=== PATIENT | male | born 1940 | race Caucasian/White ===

== ENCOUNTER 2023-02-09 09:12 | Inpatient (IN) | payer OTHER, MEDICAID ==
[~2023-02-09] VITALS: Ht 152.4 cm; Wt 65.8 kg
--- NOTE | 2023-02-09 09:13 | NUR ---
[facility] TO ER BED 3
[2023-02-09 09:20] VITALS: BP 157/82
[2023-02-09] MEDS ORDERED: NACL 0.9% 500 ML IV SCH (09:30)
[2023-02-09 09:57] LABS: BASOPHILS % (AUTO) 0.2 % (0.0-2.0); HEMATOCRIT 23.3 % (36-52); HEMOGLOBIN 7.5 g/dL (12.0-18.0); LYMPHOCYTES # (AUTO) 0.4 K/uL (2.0-11.5); LYMPHOCYTES % (AUTO) 2.8 % (20.5-51.1); MEAN CORPUSCULAR HEMOGLOBIN 28 pg (27-31); MEAN CORPUSCULAR HGB CONC 32 g/dL (33-37); MEAN CORPUSCULAR VOLUME 87.4 fL (80-94); MONOCYTES # (AUTO) 0.6 K/uL (0.8-1.0); MONOCYTES % (AUTO) 4.1 % (1.7-9.3); NEUTROPHILS # (AUTO) 13.9 K/uL (1.8-7.7); NEUTROPHILS % (AUTO) 92.9 % (42.2-75.2); PLATELET COUNT (AUTO) 178 K/uL (140-450); RED BLOOD CELL COUNT(AUTO) 2.67 MIL/uL (4.20-6.10)
[2023-02-09 10:20] LABS: ALBUMIN 2.6 g/dL (3.4-5.0); ANION GAP 16.3 (8-16); ASPARTATE AMINOTRANSFERASE 17 U/L (15-37); CARBON DIOXIDE 20.8 mmol/L (21-32); CHLORIDE 107 mmol/L (98-107); CREATININE 2.6 mg/dL (0.6-1.3); GLUCOSE 152 mg/dL (74-106); POTASSIUM 4.1 mmol/L (3.5-5.1); SODIUM SERUM 140 mmol/L (136-145); TOTAL BILIRUBIN 0.6 mg/dL (0.0-1.0)
[2023-02-09 10:25] LABS: UREA NITROGEN, BLOOD 89 mg/dL (7-18)
[2023-02-09 10:28] LABS: PROTHROMBIN TIME 11.7 secs (10.8-13.4)
[2023-02-09] MEDS ORDERED: PIPERACILLIN/TAZOBACTAM 2.25 GM in DEXTROSE 5% 50 ML IV ONE (11:00)
[2023-02-09] MEDS ORDERED: PIPERACILLIN/TAZOBACTAM 3.375 GM in DEXTROSE 5% 50 ML IV ONE (11:00)
[2023-02-09] MEDS ORDERED: NACL 0.9% 1,000 ML IV ONE (11:00)
[2023-02-09] MEDS ORDERED: PIPERACILLIN/TAZOBACTAM 2.25 GM VIAL IV ONE (11:16)
[2023-02-09] MEDS ORDERED: ESCI20TA PO (11:35)
[2023-02-09] MEDS ORDERED: AMLO5TAB PO (11:35)
[2023-02-09] MEDS ORDERED: TACR1CAP17 PO (11:35)
[2023-02-09] MEDS ORDERED: [UNRECOGNIZED DRUG - CODE] PO (11:35)
[2023-02-09] MEDS ORDERED: CLON0.1T16 PO (11:35)
[2023-02-09] MEDS ORDERED: FLONAS NS (11:35)
[2023-02-09] MEDS ORDERED: LISI2.5T12 PO (11:35)
[2023-02-09] MEDS ORDERED: ASPI-1749 PO (11:35)
[2023-02-09] MEDS ORDERED: TRA200 PO (11:35)
[2023-02-09] MEDS ORDERED: HYDR-1098 PO (11:35)
[2023-02-09] MEDS ORDERED: PRED5TAB8 PO (11:35)
[2023-02-09] MEDS ORDERED: FURO-572 PO (11:35)
[2023-02-09] MEDS ORDERED: CALC-1018 PO (11:35)
[2023-02-09] MEDS ORDERED: POLY10DR5 OP (11:35)
[2023-02-09] MEDS ORDERED: TAMS0.4C97 PO (11:35)
[2023-02-09 12:15] LABS: BILIRUBIN,URINE 1+ (NEGATIVE); BLOOD, URINE 3+ (NEGATIVE); LEUKOCYTE ESTERASE ,URINE 3+ (NEGATIVE); NITRITE, URINE POSITIVE (NEGATIVE); PH,URINE 6.5 (5.0-9.0); UGLUCOSE NEGATIVE (NEGATIVE)
[2023-02-09] MEDS ORDERED: FUROSEMIDE 100 MG/10 ML VIAL IV ONE (12:25)
[2023-02-09] MEDS ORDERED: AZITHROMYCIN 250 MG TAB PO ONE (12:25)
[2023-02-09 12:42] LABS: APPEARANCE,URINE CLOUDY (CLEAR); COLOR,URINE BLOODY (YELLOW); RBC,URINE >100 /HPF (0-5)
[2023-02-09 12:43] LABS: BARBITURATE, URINE NEGATIVE ng/ml (NEG <=200); BENZODIAZEPINE, URINE NEGATIVE ng/mL (NEG <=200); CANNABINOID, URINE NEGATIVE ng/mL (NEG <=50); COCAINE, URINE NEGATIVE ng/mL (NEG <=300); OPIATE, URINE NEGATIVE ng/mL (NEG <=2000); PHENCYCLIDINE SCREEN,URINE NEGATIVE ng/mL (NEG <=25)
[2023-02-09] MEDS ORDERED: cefTRIAXone 1,000 MG VIAL ONE (12:46)
[2023-02-09] MEDS ORDERED: HEPARIN PER PHARMACY MC PRN ×2 (13:10→13:15)
[2023-02-09] MEDS ORDERED: hePARIN / DEXT 5% PREMIX 250 ML IV SCH (13:10)
[2023-02-09] MEDS ORDERED: ALBUTEROL SULFATE/IPRATROPIU 3 ML SOL IH ONE ×2 (14:03→14:05)
[2023-02-09 14:08] LABS: PROTHROMBIN TIME 11.9 secs (10.8-13.4)
[2023-02-09] MEDS ORDERED: ACETAMINOPHEN 325 MG TAB PO ONE (14:10)
[2023-02-09] MEDS: hePARIN / DEXT 5% PREMIX 250 ML IV SCH ×2 (16:12→20:02)
--- NOTE | 2023-02-09 16:30 | NUR ---
admitted the patinet from emergency room jack Larson in rm 125A aox2 with admitting diagnosis of urinary tract infection. on heparin drip initial dose 7mls/hr in 250 ml will continue to monitor
[2023-02-09] MEDS ORDERED: FLUTICASONE NASAL 50 MCG/ACTUATION 16 GM BTL NS PRN ×2 (16:50→17:05)
[2023-02-09] MEDS ORDERED: LABETALOL 200 MG TAB PO SCH (17:00)
[2023-02-09] MEDS ORDERED: POTASSIUM CHLORIDE 10 MEQ TABER PO PRN (17:00)
[2023-02-09] MEDS ORDERED: ACETAMINOPHEN 325 MG TAB PO PRN (17:00)
[2023-02-09] MEDS ORDERED: hydrALAZINE 25 MG TAB PO SCH (17:00)
[2023-02-09] MEDS ORDERED: MAG SULF 2000 MG/WATER PREMIX 50 ML IV PRN (17:00)
--- NOTE | 2023-02-09 17:08 | NUR ---
Patient will be admitted to care of DR. GALEAS. Admited to TELE. Will go to room 125 B. Belongings list completed. Report to MICHAEL GIANG.
[2023-02-09 18:34] LABS: PROTHROMBIN TIME 13.2 secs (10.8-13.4)
[2023-02-09 18:49] LABS: CHOL/HDL RATIO 2.4 (1-4.5); FREE T4 (FREE THYROXINE) 0.93 ng/dL (0.76-1.46); MAGNESIUM 1.9 mg/dL (1.8-2.4); PHOSPHORUS 2.9 mg/dL (2.5-4.9); THYROID STIMULATING HORMONE 1.37 uIU/mL (0.34-3.74)
--- NOTE | 2023-02-09 19:07 | NUR ---
will endorse to lieutenant shift supervisor rn for continuity of care
--- NOTE | 2023-02-09 19:15 | NUR ---
RECEIVED PT IN BED ASLEEP. NO S/SX OF PAIN NOR DISCOMFORT. NO ACUTE RESPIRATORY DISTRESS NOTED. SKIN WARM AND TO TOUCH. SAFETY PRECAUTIONS IN PLACE, CALL LIGHT IN REACH.
[2023-02-09 20:00] VITALS: BP 194/74
[2023-02-09] MEDS ORDERED: TRIMETHOPRIM OP SCH (20:00)
[2023-02-09] MEDS ORDERED: POLYMYXIN B SULF OP SCH (20:00)
[2023-02-09] MEDS: DOCUSATE SODIUM 100 MG GELCAP PO SCH (20:21)
[2023-02-09] MEDS: ESCITALOPRAM 20 MG TAB PO SCH (20:23)
[2023-02-09] MEDS: TACROLIMUS 1 MG CAP PO SCH (20:24)
--- NOTE | 2023-02-09 20:24 | NUR ---
DUE MEDICATIONS GIVEN ORDERED, TOLERATED WELL. TEMP-100.9, TYLENOL GIVEN ORDERED. COOLING MEASURES DONE.
--- NOTE | 2023-02-09 20:36 | NUR ---
DR. GALEAS AWARE OF LACTIC ACID AND TROPONIN RESULTS, NO NEW ORDER. MADE AWARE OF PT'S WHEEZING AND SOB, NEW ORDER FOR BREATHING TREATMENT GIVEN.
[2023-02-09] MEDS ORDERED: ALBUTEROL SULFATE/IPRATROPIU 3 ML SOL IH PRN (20:40)
[2023-02-09] MEDS ORDERED: amLODIPine 5 MG TAB PO SCH (21:00)
[2023-02-09] MEDS ORDERED: CLONIDINE HYDROCHLORIDE 0.1 MG TAB PO SCH (21:00)
[2023-02-09] MEDS ORDERED: TACROLIMUS PO SCH (21:00)
--- NOTE | 2023-02-09 21:00 | NUR ---
INCONTINENT OF URINE, PERINEAL CARE RENDERED.
[2023-02-09] MEDS: ONDANSETRON 4 MG/2 ML VIAL IVP PRN (21:04)
--- NOTE | 2023-02-09 21:45 | NUR ---
CURRENT TEMP-98.9. MADE COMFORTABLE IN BED.CALL LIGHT PLACED WITHIN REACH.
[2023-02-09] MEDS: ALBUTEROL SULFATE/IPRATROPIU 3 ML SOL IH SCH (21:52)
[2023-02-10] VITALS: BP 169/58
--- NOTE | 2023-02-10 00:08 | NUR ---
BP-169/58, CALL PLACED TO DR. GALEAS, NO PRN MEDICATION FOR BP. AWAITING CALL BACK. REPOSITIONED PT. CALL LIGHT IN REACH.
[2023-02-10] MEDS: TACROLIMUS 1 MG CAP PO SCH ×2 (00:12→09:48)
[2023-02-10] MEDS: DOCUSATE SODIUM 100 MG GELCAP PO SCH ×2 (00:12→09:48)
[2023-02-10] MEDS: ESCITALOPRAM 20 MG TAB PO SCH (00:12)
[2023-02-10] MEDS: HYDROcodone/APAP 7.5/325 MG 1 TAB PO PRN (00:34)
--- NOTE | 2023-02-10 00:34 | NUR ---
PATIENT COMPLAINING OF THROAT PAIN, MEDICATED ORDERED. PERINEAL CARE RENDERED. PULLED UP AND MADE COMFORTABLE IN BED. CALL LIGHT IN REACH.
[2023-02-10] MEDS ORDERED: METOPROLOL 25 MG TAB PO SCH (00:55)
--- NOTE | 2023-02-10 00:57 | NUR ---
NEW ORDER FOR BP MEDICATION GIVEN, WILL CARRY OUT ORDERED.
--- NOTE | 2023-02-10 01:34 | NUR ---
PT ASLEEP. NO S/SX OF PAIN NOR DISCOMFORT.
[2023-02-10] MEDS: ALBUTEROL SULFATE/IPRATROPIU 3 ML SOL IH SCH ×6 (02:03→23:00)
[2023-02-10] MEDS: hydrALAZINE 25 MG TAB PO SCH ×3 (04:05→20:44)
[2023-02-10 04:31] VITALS: BP 181/69
--- NOTE | 2023-02-10 06:00 | NUR ---
AM CARE RENDERED. REPOSITIONED FOR COMFORT. HEAD OF THE BED ELEVATED. CALL LIGHT IN REACH.
[2023-02-10 06:03] LABS: BASOPHILS % (AUTO) 0.2 % (0.0-2.0); EOSINOPHILS % (AUTO) 0.1 % (0.0-4.0); HEMATOCRIT 20.9 % (36-52); LYMPHOCYTES # (AUTO) 0.8 K/uL (2.0-11.5); LYMPHOCYTES % (AUTO) 5.5 % (20.5-51.1); MEAN CORPUSCULAR HEMOGLOBIN 28 pg (27-31); MEAN CORPUSCULAR HGB CONC 33 g/dL (33-37); MEAN CORPUSCULAR VOLUME 86.6 fL (80-94); MONOCYTES # (AUTO) 0.8 K/uL (0.8-1.0); MONOCYTES % (AUTO) 5.6 % (1.7-9.3); NEUTROPHILS # (AUTO) 12.9 K/uL (1.8-7.7); NEUTROPHILS % (AUTO) 88.6 % (42.2-75.2); PLATELET COUNT (AUTO) 171 K/uL (140-450); RED BLOOD CELL COUNT(AUTO) 2.41 MIL/uL (4.20-6.10); RED CELL DISTRIBUTION WIDTH 16.2 % (11.6-13.7); WHITE BLOOD COUNT (AUTO) 14.5 K/uL (4.8-10.8)
[2023-02-10 06:07] LABS: HEMOGLOBIN 6.8 g/dL (12.0-18.0)
[2023-02-10 06:19] LABS: ANION GAP 14.4 (8-16); CARBON DIOXIDE 21.5 mmol/L (21-32); CHLORIDE 109 mmol/L (98-107); CREATININE 2.7 mg/dL (0.6-1.3); GLUCOSE 160 mg/dL (74-106); POTASSIUM 3.9 mmol/L (3.5-5.1); SODIUM SERUM 141 mmol/L (136-145); UREA NITROGEN, BLOOD 92 mg/dL (7-18)
[2023-02-10 06:28] LABS: MAGNESIUM 1.9 mg/dL (1.8-2.4); PHOSPHORUS 3.4 mg/dL (2.5-4.9)
--- NOTE | 2023-02-10 06:37 | NUR ---
PATIENT IS ASLEEP. ALL NEEDS ATTENDED TO. NO DISTRESS. SAFETY PRECAUTIONS MAINTAINED DURING THE SHIFT, CALL LIGHT REMAINS WITHIN REACH.
--- NOTE | 2023-02-10 06:42 | NUR ---
SPOKE WITH DAUGHTER JOHNNY FERNANDEZ REGARDING CONSENT FOR BLOOD TRANSFUSION, DAUGHTER GAVE TELEPHONE CONSENT, 2ND NURSE KALE WITNESSED.
--- NOTE | 2023-02-10 07:08 | NUR ---
receive the patinet from the shift manager rn in rm 125A aox3 with admitting diagnosis of urinary tract infection . will continue to monitor .
[2023-02-10 08:00] VITALS: BP 131/84
[2023-02-10] MEDS ORDERED: CALCIUM CARBONATE PO SCH (09:00)
[2023-02-10] MEDS ORDERED: TAMSULOSIN 0.4 MG CAP PO SCH (09:00)
[2023-02-10] MEDS ORDERED: lisinopriL 5 MG TAB PO SCH (09:00)
[2023-02-10] MEDS ORDERED: VITAMIN D3 PO SCH (09:00)
[2023-02-10] MEDS: CALCIUM CARB/VIT-D 500 MG/200 IU 1 TAB PO SCH (09:48)
[2023-02-10] MEDS: NIFEdipine 90 MG TABER PO SCH (09:48)
[2023-02-10] MEDS: METOPROLOL 25 MG TAB PO SCH ×2 (09:49→20:44)
[2023-02-10] MEDS: ASPIRIN 81 MG TAB.CHEW PO SCH (09:49)
[2023-02-10] MEDS: LABETALOL 200 MG TAB PO SCH ×2 (09:50→20:44)
[2023-02-10] MEDS: PANTOPRAZOLE 40 MG INJ VIAL IVP SCH (09:50)
--- NOTE | 2023-02-10 10:04 | NUR ---
PATIENT HAS BEEN SCREENED AND CATEGORIZED MODERATE NUTRITION RISK. PATIENT WILL BE SEEN WITHIN 3-5 DAYS OF ADMISSION. REVIEWED BY BUZZ VILLAR RD
[2023-02-10 12:00] VITALS: BP 162/101
[2023-02-10] MEDS ORDERED: POLYMYXIN B OP SCH (12:00)
[2023-02-10] MEDS ORDERED: TRIMETHOPRIM OP SCH (12:00)
--- NOTE | 2023-02-10 13:01 | NUR ---
DC PLANNING ASSESSMENT COMPLETE PLEASE REFER TO ASSESSMENT FOR ADDITIONAL DETAILS JOHNNY REPORTS TENTATIVE DC PLAN IS FOR PT TO RETURN HOME WITH FAMILY PROVIDING TRANSPORTATION, WHEN MEDICALLY STABLE. JOHNNY REQUESTING ORDER TO RESUME HH ONCE PT HAS BEEN CLEARED FOR DC.SABAS ENDORSED TO CM.
[2023-02-10] MEDS: NACL 0.45% 1,000 ML IV SCH (15:27)
[2023-02-10] MEDS: predniSONE 5 MG TAB PO SCH (15:27)
[2023-02-10 16:00] VITALS: BP 155/97
--- NOTE | 2023-02-10 17:50 | NUR ---
P.T. NOTES P.T. EVAL INITIATED; REFER TO EVAL FOR DETAILS.
--- NOTE | 2023-02-10 19:11 | NUR ---
will endorse to night time nanny rn for continuity of care . to continue blood transfusion .
--- NOTE | 2023-02-10 19:15 | NUR ---
W/ ON GOING BT , NO BT RXN NOTED AT THIS TIME , SLEEPING MOST OF THE TIME , ONLY RESPONSE TACTILE STIMULI ( TOUCH ) OIV SITE INTACT AND PATENT - FOR CLOSELY WATCH .
[2023-02-10 20:00] VITALS: BP 90/58
--- NOTE | 2023-02-10 20:34 | NUR ---
RN CALLED STATED PT WAS DESATING TO 87% ON 2L NC. RT RASHID AND I CHECKED ON PT AND SWITCHED PULSE OX FROM ONE HAND TO ANOTHER AND INCREASED O2 FROM 2L NC TO 4L NC W/ BUBBLE HUMIDIFIER. NO DISTRESS NTOED FROM PT AND IS SLEEPING COMFORTABLY. WILL CONTINUE TO MONITOR.
--- NOTE | 2023-02-10 20:40 | NUR ---
BP 90 / 58 , HR 56 , SLEEPING MOST OF THE TIME , ONLY RESPONSE TO TOUCH - WILL CONT. TO MONITOR , O2 SAT 88 % - WILL REFER TO RT
--- NOTE | 2023-02-10 20:45 | NUR ---
RT AT BEDSIDE .
--- NOTE | 2023-02-10 23:00 | NUR ---
WHEN SLEEPING HEART RATE IS 55 WHEN AWAKE THE HEART RATE SPIKE TO 60 TO 63 , AWAKE
[2023-02-10 23:13] LABS: BASOPHILS % (AUTO) 0.1 % (0.0-2.0); HEMATOCRIT 22.6 % (36-52); HEMOGLOBIN 7.4 g/dL (12.0-18.0); LYMPHOCYTES # (AUTO) 0.8 K/uL (2.0-11.5); LYMPHOCYTES % (AUTO) 6.6 % (20.5-51.1); MEAN CORPUSCULAR HEMOGLOBIN 28 pg (27-31); MEAN CORPUSCULAR HGB CONC 33 g/dL (33-37); MEAN CORPUSCULAR VOLUME 83.9 fL (80-94); MONOCYTES # (AUTO) 0.8 K/uL (0.8-1.0); MONOCYTES % (AUTO) 6.5 % (1.7-9.3); NEUTROPHILS % (AUTO) 86.8 % (42.2-75.2); PLATELET COUNT (AUTO) 185 K/uL (140-450); RED CELL DISTRIBUTION WIDTH 16.9 % (11.6-13.7); WHITE BLOOD COUNT (AUTO) 11.6 K/uL (4.8-10.8)
[2023-02-11] VITALS: BP 100/60
--- NOTE | 2023-02-11 | NUR ---
rounds , no s/ sx of acute distress noted , will cont. to monitor
--- NOTE | 2023-02-11 02:00 | NUR ---
sleeping , o2 sat on monitor wnl
[2023-02-11] MEDS: ALBUTEROL SULFATE/IPRATROPIU 3 ML SOL IH SCH ×6 (03:00→23:58)
[2023-02-11 04:00] VITALS: BP 105/60
--- NOTE | 2023-02-11 04:00 | NUR ---
awake , no s/sx of acute distress noted , will cont. to monitor
[2023-02-11] MEDS: hydrALAZINE 25 MG TAB PO SCH ×2 (05:00→12:30)
[2023-02-11] MEDS: NACL 0.45% 1,000 ML IV SCH ×2 (05:17→16:58)
[2023-02-11 05:49] LABS: BASOPHILS % (AUTO) 0.1 % (0.0-2.0); HEMOGLOBIN 7.6 g/dL (12.0-18.0); LYMPHOCYTES # (AUTO) 0.8 K/uL (2.0-11.5); MEAN CORPUSCULAR HEMOGLOBIN 28 pg (27-31); MEAN CORPUSCULAR HGB CONC 33 g/dL (33-37); MEAN CORPUSCULAR VOLUME 84.9 fL (80-94); MONOCYTES # (AUTO) 0.6 K/uL (0.8-1.0); MONOCYTES % (AUTO) 5.3 % (1.7-9.3); NEUTROPHILS # (AUTO) 9.8 K/uL (1.8-7.7); NEUTROPHILS % (AUTO) 87.6 % (42.2-75.2); PLATELET COUNT (AUTO) 185 K/uL (140-450); RED BLOOD CELL COUNT(AUTO) 2.71 MIL/uL (4.20-6.10); RED CELL DISTRIBUTION WIDTH 16.7 % (11.6-13.7); WHITE BLOOD COUNT (AUTO) 11.2 K/uL (4.8-10.8)
--- NOTE | 2023-02-11 06:00 | NUR ---
o2 sat 96 % , rr 20 , bp 104 / 60 , hr 60 , afebrile , will cont. to monitor
[2023-02-11 06:21] LABS: ANION GAP 19.7 (8-16); CARBON DIOXIDE 17.2 mmol/L (21-32); CHLORIDE 108 mmol/L (98-107); CREATININE 3.6 mg/dL (0.6-1.3); GLUCOSE 145 mg/dL (74-106); POTASSIUM 3.9 mmol/L (3.5-5.1); SODIUM SERUM 141 mmol/L (136-145); UREA NITROGEN, BLOOD 108 mg/dL (7-18)
[2023-02-11 06:27] LABS: PHOSPHORUS 4.5 mg/dL (2.5-4.9)
--- NOTE | 2023-02-11 07:09 | NUR ---
receive the patinet from the warehouse shift supervisor rn inrm 125A aox3 with admitting diagnosis of N Stemi . will continue to monitor
--- NOTE | 2023-02-11 07:38 | NUR ---
endorsed to am nurse for cont. of care . i endorsed to am nurse to inform mail courier i skipped the sched. hypertension meds at 2100 and 0500 dueto lo9w bp and low hr . jack kaufman verbalizes understanding .
[2023-02-11 08:00] VITALS: BP 116/48
[2023-02-11] MEDS ORDERED: CYANOCOBALAMIN PO SCH (09:00)
[2023-02-11] MEDS: PANTOPRAZOLE 40 MG INJ VIAL IVP SCH (09:53)
[2023-02-11] MEDS: CALCIUM CARB/VIT-D 500 MG/200 IU 1 TAB PO SCH (09:53)
[2023-02-11] MEDS: DOCUSATE SODIUM 100 MG GELCAP PO SCH ×2 (09:54→22:19)
[2023-02-11] MEDS: TACROLIMUS 1 MG CAP PO SCH ×2 (09:54→22:20)
[2023-02-11] MEDS: ASPIRIN 81 MG TAB.CHEW PO SCH (09:55)
[2023-02-11] MEDS: predniSONE 5 MG TAB PO SCH (09:56)
[2023-02-11] MEDS: CYANOCOBALAMIN 1,000 MCG TAB PO SCH (09:57)
[2023-02-11] MEDS: METOPROLOL 25 MG TAB PO SCH (09:59)
[2023-02-11] MEDS: NIFEdipine 90 MG TABER PO SCH (10:00)
[2023-02-11] MEDS: LABETALOL 200 MG TAB PO SCH ×2 (10:05→22:20)
[2023-02-11 12:00] VITALS: BP 118/44
--- NOTE | 2023-02-11 14:41 | NUR ---
GIVING PT BREATHING TX . NO DISTRESS NOTED. FAMILY AT BEDSIDE PT IS AWAKE AND ALERT. FAMILY STATED HE HAS BEEN MORE AWAKE TODAY. WILL CONTINUE TO MONITOR.
[2023-02-11 16:00] VITALS: BP 112/49
--- NOTE | 2023-02-11 18:38 | NUR ---
will endorse to manager shift rn for continuity of care . with worsening renal function for possible hemodialysis . continue antibiotics therapy and breathing treatment
[2023-02-11 20:00] VITALS: BP 136/67
[2023-02-11] MEDS: ESCITALOPRAM 20 MG TAB PO SCH (22:20)
[2023-02-11] MEDS: HYDROcodone/APAP 7.5/325 MG 1 TAB PO PRN (22:36)
[2023-02-11] MEDS: ONDANSETRON 4 MG/2 ML VIAL IVP PRN (22:36)
[2023-02-12] VITALS: BP 119/58
[2023-02-12] MEDS: ALBUTEROL SULFATE/IPRATROPIU 3 ML SOL IH SCH ×5 (03:54→20:03)
[2023-02-12 04:00] VITALS: BP 121/63
[2023-02-12 05:49] LABS: HEMATOCRIT 23.4 % (36-52); HEMOGLOBIN 7.8 g/dL (12.0-18.0); LYMPHOCYTES # (AUTO) 0.7 K/uL (2.0-11.5); LYMPHOCYTES % (AUTO) 6.9 % (20.5-51.1); MEAN CORPUSCULAR HEMOGLOBIN 28 pg (27-31); MEAN CORPUSCULAR HGB CONC 34 g/dL (33-37); MEAN CORPUSCULAR VOLUME 83.6 fL (80-94); MONOCYTES # (AUTO) 0.5 K/uL (0.8-1.0); MONOCYTES % (AUTO) 4.8 % (1.7-9.3); NEUTROPHILS # (AUTO) 8.7 K/uL (1.8-7.7); NEUTROPHILS % (AUTO) 88.3 % (42.2-75.2); PLATELET COUNT (AUTO) 206 K/uL (140-450); RED CELL DISTRIBUTION WIDTH 16.9 % (11.6-13.7); WHITE BLOOD COUNT (AUTO) 9.8 K/uL (4.8-10.8)
[2023-02-12] MEDS: NACL 0.45% 1,000 ML IV SCH (06:00)
[2023-02-12 06:05] LABS: ANION GAP 18.9 (8-16); CARBON DIOXIDE 17.9 mmol/L (21-32); CHLORIDE 106 mmol/L (98-107); CREATININE 3.5 mg/dL (0.6-1.3); GLUCOSE 145 mg/dL (74-106); POTASSIUM 3.8 mmol/L (3.5-5.1); SODIUM SERUM 139 mmol/L (136-145)
[2023-02-12 06:09] LABS: UREA NITROGEN, BLOOD 117 mg/dL (7-18)
[2023-02-12 06:20] LABS: PHOSPHORUS 4.1 mg/dL (2.5-4.9)
--- NOTE | 2023-02-12 07:10 | NUR ---
RECEIVED REPORT FROM AUTOMATIC DEVELOPER NURSE FOR CONTINUITY OF CARE. PT STABLE T THIS TIME.
--- NOTE | 2023-02-12 07:25 | NUR ---
RECEIVED REPORT FROM FRONT COUNTER CLERK NURSE FOR CONTINUITY OF CARE. PT STABLE AT THIS TIME.
[2023-02-12 08:00] VITALS: BP_SYST 131; BP_SYST 147; BP_DIAS 66; BP_DIAS 84
[2023-02-12] MEDS: LABETALOL 200 MG TAB PO SCH ×2 (09:00→21:39)
[2023-02-12] MEDS: NIFEdipine 90 MG TABER PO SCH (09:00)
[2023-02-12] MEDS: TAMSULOSIN 0.4 MG CAP PO SCH (09:00)
[2023-02-12] MEDS: ASPIRIN 81 MG TAB.CHEW PO SCH (09:00)
[2023-02-12] MEDS: predniSONE 5 MG TAB PO SCH (09:00)
[2023-02-12] MEDS: DOCUSATE SODIUM 100 MG GELCAP PO SCH ×2 (09:00→21:40)
[2023-02-12] MEDS: TACROLIMUS 1 MG CAP PO SCH ×2 (09:00→21:40)
[2023-02-12] MEDS: CALCIUM CARB/VIT-D 500 MG/200 IU 1 TAB PO SCH (09:00)
[2023-02-12] MEDS: PANTOPRAZOLE 40 MG INJ VIAL IVP SCH (09:00)
--- NOTE | 2023-02-12 09:00 | NUR ---
PT REFUSED MORNING MEDICATIONS. NOTIFIED
[2023-02-12 12:00] VITALS: BP 180/78
[2023-02-12] MEDS ORDERED: hydrALAZINE 20 MG/ML VIAL IVP PRN ×2 (12:00→12:15)
[2023-02-12 16:00] VITALS: BP 189/65
[2023-02-12] MEDS: SODIUM BICARBONATE 8.4% 50 MEQ in NACL 0.45% 1,000 ML IV SCH (16:02)
--- NOTE | 2023-02-12 16:03 | NUR ---
02/12/23 RD INITIAL ASSESSMENT COMPLETED PLEASE REFER TO NUTRITION ASSESSMENT UNDER CARE ACTIVITY FOR ESTIMATED NUTRITIONAL NEEDS. 1. CONTINUE RENAL, [id number], MECHANICAL SOFT DIET TOLERATED 2. RECOMMEND NEPRO BID -PROVIDES 840 KCAL, 38G PROTEIN DAILY 3. PROVIDED NUTRITION EDUCATION AND HANDOUTS FOR DM 4. RD TO FOLLOW-UP 3-5 DAYS, MODERATE RISK REVIEWED BY BUZZ VILLAR RD
[2023-02-12] MEDS ORDERED: hydrALAZINE 20 MG/ML VIAL IVP SCH (17:00)
[2023-02-12] MEDS ORDERED: CITRIC ACID/SODIUM CITRATE 30 ML UDC PO SCH (17:00)
--- NOTE | 2023-02-12 19:32 | NUR ---
ENDORSED PTS TO CLEAN OUT DRILLER HELPER NURSE FOR CONTINUITY OF CARE. PT STABLE AT THIS TIME.
--- NOTE | 2023-02-12 19:33 | NUR ---
RECEIVED SHIFT REPORT FOR CONTINUITY OF CARE FROM DONNY RN, PATIENT WAS IN BED RESTING. RESPOND WHEN NAME WAS CALLED. CHADIAN SPEAKING ONLY BUT UNDERSTANDS MALTESE TO ANSWER APPROPRIATELY. NO COMPLAINTS OF PAIN/DISCOMFORT. NO S/S OF RESPIRATORY DISTRESS. HEAD OF BED ELEVATED. KEPT CLEAN AND DRY. SIDE RAILS UP X 3 AND CALL LIGHT IN REACH. [id number]
[2023-02-12 20:00] VITALS: BP 166/65
--- NOTE | 2023-02-12 20:00 | NUR ---
Patient's Plan of Care was discussed and reviewed with MARLI: LUI
[2023-02-12] MEDS: ESCITALOPRAM 20 MG TAB PO SCH (21:40)
--- NOTE | 2023-02-12 23:50 | NUR ---
PATIENT WAS ABLE TO TAKE HIS MEDICATION WITH APPLE SAUCE ONE AT A TIME NO INCIDENT. PATIENT WAS ABLE TO SLEEP SHORTLY AFTER MEDICATION PASS. SIDE RAILS UP X 3 FOR SAFETY CALL LIGHT WITHIN REACH. NURSING WILL FREQUENT ROOM IN ANTICIPATION OF NEEDS. [email or web address]
[2023-02-13] VITALS: BP 147/67
[2023-02-13] MEDS: ALBUTEROL SULFATE/IPRATROPIU 3 ML SOL IH SCH ×4 (00:49→19:00)
[2023-02-13 04:00] VITALS: BP 177/61
[2023-02-13 06:01] LABS: BASOPHILS # (AUTO) 0.1 K/uL (0.00-0.22); BASOPHILS % (AUTO) 0.7 % (0.0-2.0); EOSINOPHILS % (AUTO) 0.2 % (0.0-4.0); HEMATOCRIT 24.4 % (36-52); HEMOGLOBIN 8.2 g/dL (12.0-18.0); LYMPHOCYTES # (AUTO) 0.7 K/uL (2.0-11.5); LYMPHOCYTES % (AUTO) 9.4 % (20.5-51.1); MEAN CORPUSCULAR HEMOGLOBIN 29 pg (27-31); MEAN CORPUSCULAR HGB CONC 34 g/dL (33-37); MEAN CORPUSCULAR VOLUME 84.6 fL (80-94); MONOCYTES # (AUTO) 0.4 K/uL (0.8-1.0); NEUTROPHILS # (AUTO) 6.5 K/uL (1.8-7.7); NEUTROPHILS % (AUTO) 84.7 % (42.2-75.2); PLATELET COUNT (AUTO) 234 K/uL (140-450); RED BLOOD CELL COUNT(AUTO) 2.88 MIL/uL (4.20-6.10); RED CELL DISTRIBUTION WIDTH 16.8 % (11.6-13.7); WHITE BLOOD COUNT (AUTO) 7.7 K/uL (4.8-10.8)
[2023-02-13 06:18] LABS: ANION GAP 14.2 (8-16); CARBON DIOXIDE 20.7 mmol/L (21-32); CHLORIDE 108 mmol/L (98-107); CREATININE 3.3 mg/dL (0.6-1.3); GLUCOSE 136 mg/dL (74-106); POTASSIUM 3.9 mmol/L (3.5-5.1); SODIUM SERUM 139 mmol/L (136-145)
[2023-02-13] MEDS ORDERED: SODIUM BICARBONATE 8.4% PFS 50 MEQ/50 ML SYR IVP ONE (06:22)
[2023-02-13 06:24] LABS: UREA NITROGEN, BLOOD 113 mg/dL (7-18)
[2023-02-13 06:25] LABS: PHOSPHORUS 4.2 mg/dL (2.5-4.9)
--- NOTE | 2023-02-13 06:33 | NUR ---
NOTIFIED MD OF CRITICAL LABS OF BUN 113 AND CREATININE IS 3.3. AWAITING ORDERS FOR OR ACKNOWLEDGEMENT OF LABS. [email or web address]
[2023-02-13] MEDS: SODIUM BICARBONATE 8.4% 50 MEQ in NACL 0.45% 1,000 ML IV SCH ×2 (06:45→20:00)
--- NOTE | 2023-02-13 07:15 | NUR ---
RECEIVED REPORT FROM RESAW CARRIAGE OPERATOR NURSE FOR CONTINUITY OF CARE. PT STABLE T THIS TIME.
--- NOTE | 2023-02-13 07:25 | NUR ---
MD ENCOURAGED TO MONITOR PATIENT. ENDORSE PATIENT CARE TO DONNY RN FOR CONTINUITY OF CARE, PATIENT WAS STABLE AT CHANGE OF SHIFT. [email or web address]
[2023-02-13 08:00] VITALS: BP 205/73
[2023-02-13] MEDS: PANTOPRAZOLE 40 MG INJ VIAL IVP SCH (08:50)
[2023-02-13] MEDS: TAMSULOSIN 0.4 MG CAP PO SCH (08:51)
[2023-02-13] MEDS: ASPIRIN 81 MG TAB.CHEW PO SCH (08:51)
[2023-02-13] MEDS: CALCIUM CARB/VIT-D 500 MG/200 IU 1 TAB PO SCH (08:51)
[2023-02-13] MEDS: DOCUSATE SODIUM 100 MG GELCAP PO SCH ×2 (08:51→21:00)
[2023-02-13] MEDS: LABETALOL 200 MG TAB PO SCH ×2 (08:52→21:00)
[2023-02-13] MEDS: NIFEdipine 90 MG TABER PO SCH (08:53)
[2023-02-13] MEDS: TACROLIMUS 1 MG CAP PO SCH ×2 (08:53→21:00)
[2023-02-13] MEDS: CYANOCOBALAMIN 1,000 MCG TAB PO SCH (08:55)
[2023-02-13] MEDS: predniSONE 5 MG TAB PO SCH (08:56)
[2023-02-13] MEDS ORDERED: AMOX-999 PO (09:52)
--- NOTE | 2023-02-13 10:30 | NUR ---
TALKED TO DR ALVAREZ AND STATED THAT DR JENKINS WAS GOING TO DISCHARGE PATIENT TODAY, HE DID NOT AGREE AND STATED HE NEEDED TO WAIT TO SEE UROLOGIST. NOTIFIED DR JENKINS OF THIS AND HE STATED TO HOLD ON THE DISCHARGE THEN UNTIL UROLOGY SEES HIM. WE ARE KEEPING THE DISCHARGE ORDER BECAUSE ONCE HE IS CLEARED HE CAN GO HOME.
[2023-02-13 12:00] VITALS: BP 151/74
--- NOTE | 2023-02-13 13:00 | NUR ---
PT REFUSED BREATHING TREATMENT
--- NOTE | 2023-02-13 14:29 | NUR ---
UROLOGY ORDERED A RODRIGUEZ BE PLACED. NURSING STUDENTS AND INSTRUCTOR TRIED TO INSERT AND WERE UNSUCCESSFUL. WILL TRY TO INSERT AGAIN A LITTLE LATER.
[2023-02-13 16:00] VITALS: BP 142/67
--- NOTE | 2023-02-13 18:38 | NUR ---
ATTEMPTED TO PLACE RODRIGUEZ CATHETER AND WAS UNABLE TO GET THE CATHETER IN. PT HAS SOME BLOOD WHEN I PULLED OUT THE TIP OF THE RODRIGUEZ. MADE AWARE AND CALLED DAUGHTER TO NOTIFY HER THAT IT WAS NOT PLACED YET.
--- NOTE | 2023-02-13 19:10 | NUR ---
ENDORSED PTS TO LEHR CUTTER NURSE FOR CONTINUITY OF CARE. PT STABLE AT THIS TIME.
--- NOTE | 2023-02-13 19:30 | NUR ---
RECEIVED REPORT FROM DAY SHIFT RN FOR CONTINUITY OF CARE. PT IS CURRENTLY RESTING IN BED. PT NOT IN ANY DISTRESS. PT HAS RIGHT AC 20 GAUGE RUNNING BICARD WITH 1/2 NS 75 CC/HR. POC DISCUSSED. SAFETY MEASURES TAKEN. WILL CONTINUE TO MONITOR THE PT.
[2023-02-13 20:00] VITALS: BP 130/56
[2023-02-13] MEDS: ESCITALOPRAM 20 MG TAB PO SCH (21:00)
--- NOTE | 2023-02-13 21:58 | NUR ---
WAS ABLE TO GIVE HEPARIN MEDICATION. PT REFUSED ALL PO MEDS. EDUCATED PT ON IMPORTANCE OF THE MEDICATION AND STILL REFUSED. WANTS TO BE LEFT ALONE.
[2023-02-14] VITALS: BP 149/63
--- NOTE | 2023-02-14 01:00 | NUR ---
RODRIGUEZ CATHETER INSERTED DRAINING CLEAR YELLOW URINE.
[2023-02-14] MEDS: ALBUTEROL SULFATE/IPRATROPIU 3 ML SOL IH SCH (01:47)
[2023-02-14] MEDS: SODIUM BICARBONATE 8.4% 50 MEQ in NACL 0.45% 1,000 ML IV SCH (03:08)
--- NOTE | 2023-02-14 04:00 | NUR ---
OBSERVED PT. PT IS SLEEPING COMFORTABLY IN BED. PT NOT IN ANY DISTRESS. BREATHING EVEN AND UNLABORED. WILL CONTINUE TO MONITOR THE PT.
[2023-02-14 05:38] LABS: BASOPHILS % (AUTO) 0.1 % (0.0-2.0); EOSINOPHILS % (AUTO) 0.2 % (0.0-4.0); HEMATOCRIT 22.9 % (36-52); HEMOGLOBIN 7.6 g/dL (12.0-18.0); LYMPHOCYTES # (AUTO) 1.2 K/uL (2.0-11.5); LYMPHOCYTES % (AUTO) 15.6 % (20.5-51.1); MEAN CORPUSCULAR HEMOGLOBIN 28 pg (27-31); MEAN CORPUSCULAR HGB CONC 33 g/dL (33-37); MEAN CORPUSCULAR VOLUME 84.4 fL (80-94); MONOCYTES # (AUTO) 0.4 K/uL (0.8-1.0); MONOCYTES % (AUTO) 5.6 % (1.7-9.3); NEUTROPHILS # (AUTO) 5.9 K/uL (1.8-7.7); NEUTROPHILS % (AUTO) 78.5 % (42.2-75.2); PLATELET COUNT (AUTO) 240 K/uL (140-450); RED BLOOD CELL COUNT(AUTO) 2.71 MIL/uL (4.20-6.10); RED CELL DISTRIBUTION WIDTH 16.7 % (11.6-13.7); WHITE BLOOD COUNT (AUTO) 7.5 K/uL (4.8-10.8)
[2023-02-14 06:31] LABS: ANION GAP 13.4 (8-16); CARBON DIOXIDE 21.1 mmol/L (21-32); CHLORIDE 106 mmol/L (98-107); CREATININE 3.3 mg/dL (0.6-1.3); GLUCOSE 133 mg/dL (74-106); POTASSIUM 3.5 mmol/L (3.5-5.1); SODIUM SERUM 137 mmol/L (136-145)
[2023-02-14 06:36] LABS: MAGNESIUM 2.1 mg/dL (1.8-2.4); PHOSPHORUS 4.1 mg/dL (2.5-4.9)
[2023-02-14 06:40] LABS: UREA NITROGEN, BLOOD 105 mg/dL (7-18)
--- NOTE | 2023-02-14 07:07 | NUR ---
RECEIVED PT FROM NIGHT NURSE ANDREW FOR CONTINUITY OF CARE. INITIAL ASSESSMENT DONE. IVF INFUSING WELL. ON CONT. O2 @ 2L/NC. RESP. EVEN AND UNLABORED. NOT IN ANY DISTRESS NOTED. CALL LIGHT KEPT WITHIN REACH. WILL CONTINUE TO MONITOR.
--- NOTE | 2023-02-14 07:08 | NUR ---
RECEIVED REPORT FROM BUSINESS DIVISION CHAIR FOR CONTINUITY OF CARE. INITIAL ASSESSMENT DONE. ON CONT. O2 @ 2L/NC. IVF INFUSING WELL. NO C/O PAIN OR DISCOMFORT. CALL LIGHT KEPT WITHIN REACH. WILL CONTINUE TO MONITOR.
--- NOTE | 2023-02-14 07:09 | NUR ---
ENDORSED PT TO DAY SHIFT RN FOR CONTINUITY OF CARE. PT IS STABLE.
[2023-02-14 08:00] VITALS: BP 125/51
[2023-02-14] MEDS: PANTOPRAZOLE 40 MG INJ VIAL IVP SCH (09:00)
[2023-02-14] MEDS: DOCUSATE SODIUM 100 MG GELCAP PO SCH (09:00)
[2023-02-14] MEDS: TACROLIMUS 1 MG CAP PO SCH (10:19)
--- NOTE | 2023-02-14 10:19 | NUR ---
SCHEDULED MEDICATIONS GIVEN. TOLERATING WELL.
[2023-02-14] MEDS: CALCIUM CARB/VIT-D 500 MG/200 IU 1 TAB PO SCH (10:20)
[2023-02-14] MEDS: NIFEdipine 90 MG TABER PO SCH (10:21)
[2023-02-14] MEDS: LABETALOL 200 MG TAB PO SCH (10:22)
[2023-02-14] MEDS: ASPIRIN 81 MG TAB.CHEW PO SCH (10:23)
[2023-02-14] MEDS: TAMSULOSIN 0.4 MG CAP PO SCH (10:24)
[2023-02-14] MEDS: predniSONE 5 MG TAB PO SCH (10:26)
--- NOTE | 2023-02-14 11:50 | NUR ---
PT LEFT. DISCHARGE TO HOME. TRANSPORTED BY PRIVATE VEHICLE, ACCOMPANIED BY HIS DAUGHTER PER WHEELCHAIR. ALERT AND ORIENTED X 4. RESP. EVEN AND UNLABORED. SATTING 98% RA. WITH SKIN CONDITIONS FOLLOWS: SKIN TEAR TO RT HAND, SKIN DISCOLORATION TO BILATERAL UPPER EXTREMITIES. OLD AV SHUNT TO LT ARM. ID BAND AND IV REMOVED. DISCHARGE PAPERWORKS SIGNED AND DISCUSSED. DAUGHTER AT BEDSIDE. PERSONAL BELONGINGS TAKEN. REMAINS STABLE.
== END 2023-02-14 12:42 | disposition home or self-care (01) | DRG 871 ==
LOC: MED 09:12 → MTU 11:54 → MMU 14:28
PROC: 30233N1 Transfusion of Nonautologous Red Blood Cells into Peripheral Vein, Percutaneous Approach (ICD-10-PCS; principal; 2023-02-10)
DX: A41.9 Sepsis, unspecified organism (principal); G93.41 Metabolic encephalopathy; J96.01 Acute respiratory failure with hypoxia; N13.6 Pyonephrosis; N18.4 Chronic kidney disease, stage 4 (severe); I24.8 Other forms of acute ischemic heart disease; N40.0 Benign prostatic hyperplasia without lower urinary tract symptoms; J30.9 Allergic rhinitis, unspecified; B96.20 Unspecified Escherichia coli [E. coli] as the cause of diseases classified elsewhere; Z20.822 Contact with and (suspected) exposure to COVID-19; I25.10 Atherosclerotic heart disease of native coronary artery without angina pectoris; I12.9 Hypertensive chronic kidney disease with stage 1 through stage 4 chronic kidney disease, or unspecified chronic kidney disease; E11.22 Type 2 diabetes mellitus with diabetic chronic kidney disease; F32.9 Major depressive disorder, single episode, unspecified; Z79.82 Long term (current) use of aspirin; Z79.899 Other long term (current) drug therapy; Z72.0 Tobacco use
CPT/HCPCS: 36415; 36430; 71045; 76770; 80048; 80053; 80305; 81001; 82140; 82150; 82550; 82553; 83036; 83605; 83690; 83735; 83880; 84100; 84439; 84443; 84484; 85025; 85610; 85730; 86886; 86900; 86901; 86920; 87040; 87081; 87086; 93005; 94640; 96374; 96375; 97112; 97116; 97163-GP; 97530; 99291; C9113; J0360; J0696; J1644; J1940; J2405; J2543; J3420; J3490; J7060; J7507; J7512; P9016; Q0092